=== PATIENT | female | born 1985 | race Caucasian/White ===

== ENCOUNTER → 2018-07-13 | Outpatient (CLI) | payer OTHER ==
--- NOTE | 2018-07-13 13:03 | RAD ---
EXAM: Lumbar spine, 2 views. HISTORY: Disability. Trauma. COMPARISON: None. FINDINGS: Frontal and lateral views of the lumbar spine are obtained. There is no listhesis. The vertebral bodies are normal in height and the disc spaces are preserved. There is mild facet arthropathy at L5-S1. There is internal fixation of the left acetabulum. IMPRESSION: 1. Degenerative change at the lumbosacral junction. 2. No acute osseous finding. Electronically signed by: Raine Louis MD (07/13/2018 12:59 PM) [place] [id number]
== END | disposition home or self-care (01) ==
LOC: RAD 09:21
PROVIDERS: ATTEND Surgery
DX: M47.897 Other spondylosis, lumbosacral region (principal); M12.88 Other specific arthropathies, not elsewhere classified, other specified site
CPT/HCPCS: 72100